=== PATIENT | male | born 1970 | race Two or more races ===

== ENCOUNTER 2022-07-12 12:25 | Emergency (ER) | payer SELFPAY ==
[~2022-07-12] VITALS: Ht 170.2 cm; Wt 65.8 kg
[2022-07-12 12:28] VITALS: BP 144/90
--- NOTE | 2022-07-12 12:35 | NUR ---
Pt states "I really dont want to be be seen. Im ok just smoked something I was Not used to." Pt eloped
== END 2022-07-12 12:38 | disposition left against medical advice (07) ==
LOC: ER 12:27
DX: Z53.21 Procedure and treatment not carried out due to patient leaving prior to being seen by health care provider (principal)